=== PATIENT | male | born 1990 | race African-American/Black ===

== ENCOUNTER 2022-04-14 12:51 | Emergency (ER) | payer MEDICAID, OTHER | END 2022-04-14 15:05 | disposition home or self-care (01) | LOC: ERS 12:51 | DX: K02.9 Dental caries, unspecified (principal); F17.210 Nicotine dependence, cigarettes, uncomplicated | CPT/HCPCS: 99282 ==

== ENCOUNTER 2022-08-28 18:12 | Emergency (ER) | payer OTHER ==
[2022-08-28] MEDS ORDERED: Ibuprofen 200 MG TAB ONE (19:56)
== END 2022-08-28 20:03 | disposition home or self-care (01) ==
LOC: ERS 18:12
DX: S90.32XA Contusion of left foot, initial encounter (principal); F17.210 Nicotine dependence, cigarettes, uncomplicated; W22.8XXA Striking against or struck by other objects, initial encounter